=== PATIENT | female | born 1970 | race Caucasian/White ===

== ENCOUNTER 2018-03-18 17:34 | Emergency (ER) | payer SELFPAY ==
[~2018-03-18] VITALS: Ht 162.6 cm; Wt 64.0 kg
[2018-03-18] MEDS ORDERED: CYCLOBENZAPRINE 10MG TABLET PO ONE (23:45)
[2018-03-18] MEDS ORDERED: KETOROLAC 60MG/2ML VIAL IM ONE (23:45)
[2018-03-19 02:09] VITALS: BP 132/68
== END 2018-03-19 02:10 | disposition home or self-care (01) ==
LOC: ER 17:34
DX: S70.02XA Contusion of left hip, initial encounter (principal); M54.5 Low back pain; R51 Headache; V49.50XA Passenger injured in collision with unspecified motor vehicles in traffic accident, initial encounter; Y93.89 Activity, other specified; Y92.410 Unspecified street and highway as the place of occurrence of the external cause
CPT/HCPCS: 73502; 96372; 99284; J1885